=== PATIENT | female | born 1940 | race Caucasian/White ===

== ENCOUNTER 2021-11-06 10:50 | Emergency (ER) | payer MEDICARE, SELFPAY ==
[2021-11-06 11:09] VITALS: BP 89/63; PULSE 86; RESP 16; TEMP 36.6; O2SAT 100
--- NOTE | 2021-11-06 11:30 | ED.GENADULT ---
HPI - General Adult General Chief complaint: Upper Respiratory Infection Stated complaint: fatique and several nose bleeds Time Seen by Provider: 11/06/21 11:30 Source: patient Mode of arrival: ambulatory History of Present Illness HPI narrative: patient brought in by daughter for evaluation of nose bleeds and increased fatigue. no cough no runny nose. patient is normally active. daughter states the no nose bleeds since she has a cool mist humidifier in the home. denies any urinary symptoms no nausea no abdominal pain. normal appetite and shruti activity. Related Data Allergies Allergy/AdvReac Type Severity Reaction Status Date / Time No Known Allergies Allergy Verified 11/06/21 11:26 Review of Systems Review of Systems: CONSTITUTIONAL: Denies fever, chills, or sweats. EYES: Denies visual changes, redness, or discharge. ENT: Denies rhinorrhea, congestion, sore throat, or otalgia. CARDIOVASCULAR: Denies chest pain, palpitations, or edema. RESPIRATORY: Denies cough or dyspnea. GASTROINTESTINAL: Denies abdominal pain, nausea, vomiting, or diarrhea. GENITOURINARY: Denies dysuria or hematuria. SKIN: Denies rash or itching. MUSCULOSKELETAL: Denies back pain, joint pain, or myalgia. NEUROLOGIC: Denies headache, numbness, or weakness. PSYCHIATRIC: Denies anxiety or depression. Allergic/Immunologic: Comments: At time of signature, agree with nursing past medical, surgical, social and family history. There is no relevant family history pertinent to the presenting complaint Exam Narrative: GENERAL: Well-appearing, well-nourished, and in no acute distress. HEAD: Normocephalic, atraumatic. EYES: PERRLA and EOMI. ENT: Nares clear, no rhinorrhea or epistaxis. Mucous membranes moist. NECK: Supple. CHEST: Clear to auscultation. No respiratory distress. HEART: Regular rate and rhythm. No murmur heard. Normal peripheral pulses. ABDOMEN: Soft, nontender, nondistended, normal active bowel sounds. EXTREMITIES: Normal range of motion. No edema. SKIN: Warm, dry, no rash. NEURO: No focal deficits. Alert and oriented x3. [place] Coma Scale Eye Opening: Spontaneous 4 [place] Coma Scale Motor: Obeys Commands 6 Yoanna Coma Scale Verbal: Oriented 5 [place] Coma Scale Total 15 Course Course Level of Care: Express Care Visit Vital Signs Vital signs: Vital Signs Temperature 36.6 C 11/06/21 11:09 Pulse Rate 86 11/06/21 11:09 Respiratory Rate 16 11/06/21 11:09 Blood Pressure 89/63 L 11/06/21 11:09 Pulse Oximetry 100 11/06/21 11:09 Temperature 36.6 C 11/06/21 11:09 Pulse Rate 86 11/06/21 11:09 Respiratory Rate 16 11/06/21 11:09 Blood Pressure 89/63 L 11/06/21 11:09 Pulse Oximetry 100 11/06/21 11:09 blood pressure re check 110/70 Medical Decision Making Vital Signs Vital Signs: Vital Signs Temperature 36.6 C 11/06/21 11:09 Pulse Rate 86 11/06/21 11:09 Respiratory Rate 16 11/06/21 11:09 Blood Pressure 89/63 L 11/06/21 11:09 Pulse Oximetry 100 11/06/21 11:09 Temperature 36.6 C 11/06/21 11:09 Pulse Rate 86 11/06/21 11:09 Respiratory Rate 16 11/06/21 11:09 Blood Pressure 89/63 L 11/06/21 11:09 Pulse Oximetry 100 11/06/21 11:09 Critical Care Time Critical Care Time Critical Care Time: No Discharge Plan Discharge Clinical Impression: Dysuria, Fatigue Patient Disposition: Home, Self-Care Condition: Stable Instructions: Antibiotic Form, Urinary Tract Infection in Older Adults (ED) Additional Instructions: Increase fluids especially cranberry juice and water Avoid caffeine and carbonated beverages Antibiotic as directed Medicine as directed--cautioned it will cause your urine to be bright orange Tylenol/ibuprofen for pain or fever Follow-up with her primary care provider if further problems or concerns Recheck if you have fever over 101, nausea and vomiting -If you have any worsening of symptoms or any other concerns please go to the ED immediate
--- NOTE | 2021-11-06 12:29 | ED.GENADULT ---
HPI - General Adult General Chief complaint: Upper Respiratory Infection Stated complaint: fatique and several nose bleeds Time Seen by Provider: 11/06/21 11:30 Source: patient Mode of arrival: ambulatory Related Data Allergies Allergy/AdvReac Type Severity Reaction Status Date / Time No Known Allergies Allergy Verified 11/06/21 11:26 Course Course Level of Care: Express Care Visit Vital Signs Vital signs: Vital Signs Temperature 36.6 C 11/06/21 11:09 Pulse Rate 86 11/06/21 11:09 Respiratory Rate 16 11/06/21 11:09 Blood Pressure 89/63 L 11/06/21 11:09 Pulse Oximetry 100 11/06/21 11:09 Oxygen Delivery Room Air 11/06/21 11:09 Temperature 36.6 C 11/06/21 11:09 Pulse Rate 86 11/06/21 11:09 Respiratory Rate 16 11/06/21 11:09 Blood Pressure 89/63 L 11/06/21 11:09 Pulse Oximetry 100 11/06/21 11:09 Oxygen Delivery Room Air 11/06/21 11:09 Medical Decision Making Vital Signs Vital Signs: Vital Signs Temperature 36.6 C 11/06/21 11:09 Pulse Rate 86 11/06/21 11:09 Respiratory Rate 16 11/06/21 11:09 Blood Pressure 89/63 L 11/06/21 11:09 Pulse Oximetry 100 11/06/21 11:09 Oxygen Delivery Room Air 11/06/21 11:09 Temperature 36.6 C 11/06/21 11:09 Pulse Rate 86 11/06/21 11:09 Respiratory Rate 16 11/06/21 11:09 Blood Pressure 89/63 L 11/06/21 11:09 Pulse Oximetry 100 11/06/21 11:09 Oxygen Delivery Room Air 11/06/21 11:09 Lab Data Labs: Lab Results 11/06/21 Range/Units 19:35 SARS-CoV-2 RNA (RT-PCR) Positive A Urine Glucose Negative Reference Range: Negative Urine Bilirubin 2+ Reference Range: Negative Urine Ketone 2+ Reference Range: Negative Urine Specific [place] 1.030 Reference Range:1.001-1.035 Urine Blood Trace Reference Range: Negative * * Urine pH 6.0 Reference Range: 5.0-9.0 Urine Protein 3+ Reference Range: Negative Urine Urobilinogen 1.0 Reference Range: 0.2-1.0 Urine Nitrate Negative Reference Range: Negative Urine Leukocyte Negative Reference Range: Negative Urine Color Dark,Yellow Reference Range: Yellow Discharge Plan Discharge Clinical Impression: Dysuria, Fatigue Patient Disposition: Home, Self-Care Condition: Stable Instructions: Antibiotic Form, Urinary Tract Infection in Older Adults (ED) Additional Instructions: Increase fluids especially cranberry juice and water Avoid caffeine and carbonated beverages Antibiotic as directed Medicine as directed--cautioned it will cause your urine to be bright orange Tylenol/ibuprofen for pain or fever Follow-up with her primary care provider if further problems or concerns Recheck if you have fever over 101, nausea and vomiting -If you have any worsening of symptoms or any other concerns please go to the ED immediately. Prescriptions: New cephalexin 500 mg capsule 500 mg PO Q12H Qty: 14 0RF Follow-up/Referrals: Nicci,MD Bill [Primary Care Provider] -
[2021-11-07 13:54] LABS: SARS-CoV-2 RNA PCR Positive
== END 2021-11-06 12:31 | disposition home or self-care (01) ==
PROVIDERS: Emergency Provider Nurse Practitioner Family; PCP Hospitalist
DX: R30.0 Dysuria (principal); R53.83 Other fatigue; Z20.822 Contact with and (suspected) exposure to COVID-19
CPT/HCPCS: 81003; 87086; 87088; 99213; C9803; G0463; U0003; U0005

== ENCOUNTER 2022-11-26 16:35 | Emergency (ER) | payer MEDICARE, SELFPAY ==
[2022-11-26 16:38] VITALS: BP 118/70; PULSE 70; RESP 20; TEMP 36.4; O2SAT 100
--- NOTE | 2022-11-26 17:01 | ED.GENADULT ---
HPI - General Adult General Chief complaint: Upper Respiratory Infection Stated complaint: cold flu Source: patient, family and RN notes reviewed History of Present Illness HPI narrative: 82-year-old female with history of dementia, presents to urgent care with a stepdaughter at side. Stepdaughter states that patient began feeling ill on Saturday. According stepdaughter, patient began feeling lethargic and not eating like normal. Patient had a syncopal episode in alevism yesterday and according to witnesses, pt was not unconscious for very long. Denies hitting her head. Stepdaughter also states pt appeared phan in color yesterday. States pt is continuing to not eat much and has been on the couch all day. Denies any fevers, chills, chest pain, SOB, vomiting, or diarrhea. Some parts of this dictation were generated by voice recognition software and may contain typographical and/or grammatical inaccuracies. Related Data Allergies Allergy/AdvReac Type Severity Reaction Status Date / Time No Known Allergies Allergy Verified 11/06/21 11:26 Review of Systems Review of Systems: CONSTITUTIONAL: Denies fever, chills, or sweats. EYES: Denies visual changes, redness, or discharge. ENT: Denies otalgia and sore throat CARDIOVASCULAR: Denies chest pain, palpitations, or edema. RESPIRATORY: Reports slight cough GASTROINTESTINAL: Denies abdominal pain, nausea, vomiting, or diarrhea. GENITOURINARY: Denies dysuria or hematuria. SKIN: Denies rash or itching. MUSCULOSKELETAL: Denies back pain, joint pain, or myalgia. NEUROLOGIC: Denies headache, numbness, or weakness. ROS is limited due to pt's hx of dementia. PMFSH Comments At the time of my signature, I reviewed and agree with the nursing past medical, surgical, social, and family history. There is no relevant family history pertinent to the patient complaint. Exam Narrative: GENERAL: This is a well-nourished, well-developed patient, in no apparent distress. HEAD: normocephalic, atraumatic. EYES: PERRL. Sclera clear/white. Vision is grossly intact. EARS: External ears normal, auditory canals clear and without drainage, TMs normal without perforation. Hearing grossly intact. NOSE: External nose normal with no obvious nasal discharge, nares without redness, no rhinorrhea. THROAT: Mucous membranes dry NECK: Neck supple, non-tender without lymphadenopathy, masses or thyromegaly. CARDIOVASCULAR: Regular rate and rhythm without murmurs, gallops, or rubs. RESPIRATORY: Clear to auscultation. Breath sounds equal bilaterally. No wheezes, rales, or rhonchi. GASTROINTESTINAL: Abdomen soft, non-tender, nondistended. Bowel sounds are active. No hepato-splenomegaly, or palpable masses. No guarding. SKIN: warm, intact with no suspicious lesions or rash, good texture and turgor. NEURO: awake, alert. at pt baseline. Course Course Level of Care: Express Care Visit Vital Signs Vital signs: Vital Signs Temperature 97.5 F L 11/26/22 16:38 Pulse Rate 70 11/26/22 16:38 Respiratory Rate 20 11/26/22 16:38 Blood Pressure 118/70 11/26/22 16:38 Pulse Oximetry 100 11/26/22 16:38 Oxygen Delivery Room Air 11/26/22 16:38 Temperature 97.5 F L 11/26/22 16:38 Pulse Rate 70 11/26/22 16:38 Respiratory Rate 20 11/26/22 16:38 Blood Pressure 118/70 11/26/22 16:38 Pulse Oximetry 100 11/26/22 16:38 Oxygen Delivery Room Air 11/26/22 16:38 Reviewed Transfer Transfered to: [facility]) Transportation: Other (private vehicle driven by stepdaugher) Transfer rationale: Dehydration, syncopal episode, Covid + Accepting physician: Filomena VALDEZ Medical Decision Making MDM Narrative Medical decision making narrative: Pt tested + for Covid and has a UTI. It was discussed with stepdaughter and pt's POAAureliano, pt's son via phone, the risks of leaving AMA and benefits of further evaluation at ER, including IV fluids, blood work, and possible cardiac workup. It
== END 2022-11-26 17:49 | disposition short-term general hospital (02) ==
PROVIDERS: Emergency Provider Nurse Practitioner Family; PCP Hospitalist
DX: U07.1 COVID-19 (principal); E86.0 Dehydration; R55 Syncope and collapse; F03.90 Unspecified dementia, unspecified severity, without behavioral disturbance, psychotic disturbance, mood disturbance, and anxiety; M19.90 Unspecified osteoarthritis, unspecified site
CPT/HCPCS: 81003; 87086; 87804; 99213; G0463